=== PATIENT | male | born 1975 | race African-American/Black ===

== ENCOUNTER 2020-08-27 15:03 | Emergency (ER) | payer SELFPAY ==
[2020-08-27] MEDS ORDERED: Ketorolac Tromethamine 30 MG/ML VIAL ONE (16:24)
[2020-08-27 16:57] LABS: #Eosinphils 0.1 10x3/uL (0.0-0.5); #Monocytes 0.7 10x3/uL (0.0-1.1); #Neutrophils 3.4 10x3/uL (1.5-8.4); %Basophils 0.6 % (0.0-2.0); %Eosinophils 1.1 % (0.0-6.0); %Lymphocytes 39.7 % (18.0-47.0); %Monocytes 10.2 % (0.0-10.0); %Neutrophils 48.3 % (40.0-75.0); Hemoglobin 14.5 g/dL (13.5-17.5); Mean Corpuscular HGB CONC 33.6 g/dL (32.0-36.0); Mean Corpuscular Hemoglobin 31.6 pg (27.0-33.0); Mean Corpuscular Volume 93.9 fl (81.2-95.1); Mean Platelet Volume 10.2 fl (7.4-10.4); Platelet Count 231 10x3/uL (150-450); RBC Distribution Width 12.4 % (11.5-14.5); Red Blood Cell (RBC) Count 4.59 10x6/uL (4.32-5.72)
[2020-08-27 16:58] LABS: ALT (SGPT) 17 U/L (8-55); AST (SGOT) 13 U/L (5-34); Albumin 4.2 g/dL (3.5-5.0); Alkaline Phosphatase 86 U/L (40-110); Anion Gap 12 mmol/L (10-20); BUN (Urea Nitrogen) 13 mg/dL (8.9-20.6); Bilirubin, Total 0.3 mg/dL (0.2-1.2); Calc. Creatinine Clearance 0 mL/min (70-130); Calcium 9.5 mg/dL (7.8-10.44); Carbon Dioxide 27 mmol/L (22-29); Chloride 103 mmol/L (98-107); Glucose 245 mg/dL (70-105); Lipase 81 U/L (8-78); Potassium 4.4 mmol/L (3.5-5.1); Protein, Total 7.2 g/dL (6.0-8.3); Sodium 138 mmol/L (136-145)
== END 2020-08-27 17:15 | disposition home or self-care (01) ==
LOC: CSHERS 15:03
DX: K29.70 Gastritis, unspecified, without bleeding (principal); K85.90 Acute pancreatitis without necrosis or infection, unspecified; I10 Essential (primary) hypertension; E11.9 Type 2 diabetes mellitus without complications; F17.210 Nicotine dependence, cigarettes, uncomplicated; Z79.4 Long term (current) use of insulin
CPT/HCPCS: 36415; 36416; 80053; 83690; 85025; 96374; J1885

== ENCOUNTER 2022-02-16 07:33 | Emergency (ER) | payer OTHER ==
[2022-02-16] MEDS ORDERED: Acetaminophen 500 MG TAB ONE (08:44)
[2022-02-16] MEDS ORDERED: Morphine 4 MG/ML VIAL ONE (08:45)
[2022-02-16] MEDS ORDERED: Ketorolac Tromethamine 30 MG/ML VIAL ONE (08:45)
== END 2022-02-16 09:20 | disposition home or self-care (01) ==
LOC: CSHERS 07:33
DX: M54.12 Radiculopathy, cervical region (principal); R20.2 Paresthesia of skin; E11.9 Type 2 diabetes mellitus without complications; I10 Essential (primary) hypertension; F17.210 Nicotine dependence, cigarettes, uncomplicated
CPT/HCPCS: 96372; 99283; J1885; J2270

== ENCOUNTER 2022-03-06 07:47 | Emergency (ER) | payer OTHER ==
[2022-03-06] MEDS ORDERED: Ondansetron PF 4 MG/2 ML Vial ONE (07:59)
[2022-03-06] MEDS ORDERED: Pantoprazole 40 MG VIAL ONE (08:00)
[2022-03-06 08:23] LABS: #Basophils 0.1 10x3/uL (0.0-0.2); #Eosinphils 0.1 10x3/uL (0.0-0.5); #Monocytes 1.2 10x3/uL (0.0-1.1); #Neutrophils 4.9 10x3/uL (1.5-8.4); %Basophils 0.6 % (0.0-2.0); %Eosinophils 0.5 % (0.0-6.0); %Lymphocytes 43.4 % (18.0-47.0); %Monocytes 10.8 % (0.0-10.0); %Neutrophils 44.3 % (40.0-75.0); Hemoglobin 16.2 g/dL (13.5-17.5); Mean Corpuscular HGB CONC 34.3 g/dL (32.0-36.0); Mean Corpuscular Hemoglobin 31.8 pg (27.0-33.0); Mean Corpuscular Volume 92.7 fl (81.2-95.1); Mean Platelet Volume 9.9 fl (7.4-10.4); Platelet Count 332 10x3/uL (150-450); RBC Distribution Width 12.1 % (11.5-14.5); Red Blood Cell (RBC) Count 5.09 10x6/uL (4.32-5.72); White Blood Cell (WBC) Count 11.1 10x3/uL (3.5-10.5)
[2022-03-06 08:28] LABS: pH (venous) 7.36 (7.32-7.43)
[2022-03-06 08:29] LABS: Actual Bicarbonate (HCO3v) 23 mEq/L (22-28); Base Excess -2.2 mEq/L (-2.0 to +3.0)
[2022-03-06 08:31] LABS: Calcium, Ionized (venous) 1.09 mmol/L (1.16-1.32); Chloride (VBG) 102 mmol/L (98-106); Potassium (VBG) 4.48 mmol/L (3.70-5.30); RapidComm User CP.VR1
[2022-03-06 08:34] LABS: ALT (SGPT) 17 U/L (8-55); AST (SGOT) 15 U/L (5-34); Albumin 3.7 g/dL (3.5-5.0); Alkaline Phosphatase 81 U/L (40-110); Anion Gap 15 mmol/L (10-20); BUN (Urea Nitrogen) 15 mg/dL (8.9-20.6); Bilirubin, Total 0.3 mg/dL (0.2-1.2); Calc. Creatinine Clearance 0 mL/min (70-130); Calcium 8.8 mg/dL (7.8-10.44); Carbon Dioxide 25 mmol/L (22-29); Chloride 102 mmol/L (98-107); Estimated GFR 63; Globulin 2.2 g/dL (2.4-3.5); Glucose 405 mg/dL (70-105); Lipase 56 U/L (8-78); Magnesium 1.9 mg/dL (1.6-2.6); Potassium 4.2 mmol/L (3.5-5.1); Protein, Total 5.9 g/dL (6.0-8.3); Sodium 138 mmol/L (136-145)
[2022-03-06 08:38] LABS: Phosphorus 3.2 mg/dL (2.3-4.7)
[2022-03-06 11:12] LABS: Puncture Site Other Site; RapidComm Collect By CBN
[2022-03-06] MEDS ORDERED: Iopamidol 300 61% 100 ML VIAL FS ONE (12:33)
== END 2022-03-06 10:35 | disposition home or self-care (01) ==
LOC: CSHERS 07:47
DX: E11.65 Type 2 diabetes mellitus with hyperglycemia (principal); R11.2 Nausea with vomiting, unspecified; I10 Essential (primary) hypertension; F17.210 Nicotine dependence, cigarettes, uncomplicated
CPT/HCPCS: 36415; 36416; 71045; 74177; 80053; 82010; 82805; 83690; 83735; 84100; 84484; 85025; 93005; 96361; 96374; 96375; C9113; J2405; Q9967

== ENCOUNTER 2022-06-08 07:55 | Emergency (ER) | payer MEDICAID, OTHER, SELFPAY ==
[2022-06-08] MEDS ORDERED: Lidocaine 1% (PF) 30 ML VIAL ONE (08:09)
[2022-06-08] MEDS ORDERED: Morphine 4 MG/ML VIAL ONE (08:15)
[2022-06-08] MEDS ORDERED: Ketorolac Tromethamine 30 MG/ML VIAL ONE (08:15)
== END 2022-06-08 08:54 | disposition home or self-care (01) ==
LOC: CSHERS 07:55
DX: N48.21 Abscess of corpus cavernosum and penis (principal); E11.9 Type 2 diabetes mellitus without complications; I10 Essential (primary) hypertension; F17.210 Nicotine dependence, cigarettes, uncomplicated
CPT/HCPCS: 10060; 96372; J1885; J2001; J2270

== ENCOUNTER 2024-05-04 09:52 | Emergency (ER) | payer OTHER | END 2024-05-04 10:29 | disposition home or self-care (01) | LOC: CSHERS 09:52 | DX: L73.9 Follicular disorder, unspecified (principal); K13.79 Other lesions of oral mucosa; I10 Essential (primary) hypertension; E11.40 Type 2 diabetes mellitus with diabetic neuropathy, unspecified; F17.210 Nicotine dependence, cigarettes, uncomplicated | CPT/HCPCS: 99283 ==

== ENCOUNTER 2025-01-13 08:20 | Emergency (ER) | payer OTHER ==
[2025-01-13] MEDS ORDERED: Ketorolac Tromethamine 30 MG (1 mL) VIAL ONE (08:44)
== END 2025-01-13 09:32 | disposition home or self-care (01) ==
LOC: CSHERS 08:20
DX: M54.50 Low back pain, unspecified (principal); E11.40 Type 2 diabetes mellitus with diabetic neuropathy, unspecified; I10 Essential (primary) hypertension; F17.210 Nicotine dependence, cigarettes, uncomplicated
CPT/HCPCS: 72100; 96372; 99284; J1885

== ENCOUNTER 2025-01-17 15:31 | Emergency (ER) | payer OTHER ==
[~2025-01-17 15:31] MED LIST: Iopamidol 300 61% 100 ML VIAL FS ONE
[2025-01-17 16:20] LABS: Glucose, Urine (Dipstick) >=1000 mg/dL (Negative); Leukocyte Negative (Negative); Protein, Urine (Dipstick) 30 mg/dl (Neg-Trace); Specific Gravity, Urine 1.010 (1.005-1.030)
[2025-01-17 16:44] LABS: RBC/HPF 0-3 HPF (0-3)
[2025-01-17 16:45] LABS: CAUTI Indications for Culture Pelvic or flank pain; WBC/HPF 0-3 HPF (0-3)
[2025-01-17 16:48] LABS: Mucous/LPF 1+ LPF (<2+)
[2025-01-17 16:49] LABS: Bacteria/HPF Rare-Few HPF (None Seen); Urine Culture Reflex No No
[2025-01-17] MEDS ORDERED: Ketorolac Tromethamine 30 MG (1 mL) VIAL ONE (17:16)
[2025-01-17] MEDS ORDERED: Ondansetron PF 4 MG/2 ML Vial ONE (17:16)
[2025-01-17 17:38] LABS: #Basophils 0.08 10x3/uL (0.0-0.2); #Eosinophils 0.11 10x3/uL (0.0-0.5); #Monocytes 0.85 10x3/uL (0.0-1.1); #Neutrophils 2.53 10x3/uL (1.5-8.4); %Basophils 1.1 % (0.0-2.0); %Eosinophils 1.6 % (0.0-6.0); %Lymphocytes 49.0 % (18.0-47.0); %Monocytes 12.1 % (0.0-10.0); %Neutrophils 35.9 % (40.0-75.0); ALT (SGPT) 17 U/L (Less than 45); AST (SGOT) 17 U/L (11-34); Albumin 3.6 g/dL (3.1-4.5); Alkaline Phosphatase 63 U/L (40-110); Anion Gap 9 mmol/L (10-20); BUN (Urea Nitrogen) 14 mg/dL (8.9-20.6); Bilirubin, Total 0.2 mg/dL (0.3-1.2); Calc. Creatinine Clearance 0 mL/min (70-130); Calcium 8.4 mg/dL (7.8-10.44); Carbon Dioxide 27 mmol/L (22-29); Chloride 108 mmol/L (98-107); Globulin 3.0 g/dL (2.4-3.5); Glucose 157 mg/dL (70-105); Hematocrit 36.2 % (38.8-50.0); Hemoglobin 12.3 g/dL (13.5-17.5); Lipase 94 U/L (8-78); Mean Corpuscular Hemoglobin 31.2 pg (27.0-33.0); Mean Corpuscular Volume 91.9 fL (81.2-95.1); Platelet Count 217 10x3/uL (150-450); Potassium 4.2 mmol/L (3.5-5.1); Red Blood Cell (RBC) Count 3.94 10x6/uL (4.32-5.72); Sodium 140 mmol/L (136-145); White Blood Cell (WBC) Count 7.04 10x3/uL (3.5-10.5)
== END 2025-01-17 16:54 | disposition home or self-care (01) ==
LOC: CSHERS 15:31
DX: R07.9 Chest pain, unspecified (principal); R10.9 Unspecified abdominal pain; E11.65 Type 2 diabetes mellitus with hyperglycemia; E11.40 Type 2 diabetes mellitus with diabetic neuropathy, unspecified; I10 Essential (primary) hypertension; V89.2XXA Person injured in unspecified motor-vehicle accident, traffic, initial encounter
CPT/HCPCS: 71260; 74177; 80053; 81001; 83690; 85025; 96374; 96375; 99285; J1885; J2270; J2405; Q9967